=== PATIENT | female | born 1935 | race Caucasian/White ===

== ENCOUNTER 2025-02-16 12:16 | Inpatient (IN) ==
--- NOTE | 2025-02-16 12:30 | Emergency Department Note ---
Impression & Plan Non-ST elevation OR (NSTEMI) ED Provider Note NAME: SAMUEL CHO AGE: 89 SEX: F : 1935 ARRIVES VIA: Walk-In INFORMANT: The patient herself and family at bedside. ED PROVIDER(S): Hollie Sanders PA-C, [Jesus Kerns MD] CHIEF COMPLAINT: Chest pain HISTORY OF PRESENTING ILLNESS: The patient is an 89-year-old female with a PMH aortic stenosis with valvular repair in November 2024, diabetes, constipation who reports to the emergency department after leaving AMA from [facility]. She was evaluated there due to an episode of chest pain. She was seen there yesterday where her initial troponin was 550 and the repeat was 614. She was diagnosed with an NSTEMI and started on heparin drip. She and family members report being 17th in line for transfer to [place] for stress testing so her and her family left [place] to come here for evaluation by automotive power electronics engineer. Patient denies any chest pain currently and is feeling improved. She does report having a cardiology visit with Dr. Prabhakar 3 days ago due to a lower extremity edema. REVIEW OF SYSTEMS: See HPI for pertinent positives and pertinent negatives. ALLERGIES: Codeine, adhesive tape MEDICATIONS: See below PAST MEDICAL HISTORY: See below PHYSICAL EXAM: VITALS: Vitals are noted on the nurses note and reviewed by myself. Vital signs stable. GENERAL: 89-year-old female, in no acute distress, nondiaphoretic, well- developed well-nourished. SKIN: Capillary refill less than 2 seconds. HEENT: Normocephalic. PERRLA. EOMI. Nares patent. Mucous membranes moist. Neck is supple without nuchal rigidity. HEART: Regular rate and rhythm. + Murmur. LUNGS: CTA BL without wheezes, rales or rhonchi. No retractions or accessory muscle use. ABDOMEN: Positive BS x 4. Soft, nontender, without masses or organomegaly. No guarding or rebound tenderness. MUSCULOSKELETAL: No gross musculoskeletal defects. NEURO: Patient was alert and oriented to person place and time. No focal neurological deficits. DIFFERENTIAL DIAGNOSIS: NSTEMI, STEMI, pulmonary embolism, pneumothorax, pericarditis, myocarditis, endocarditis, anxiety, musculoskeletal pain, GERD, costochondritis, pneumonia, among others. ED COURSE AND MEDICAL DECISION MAKING: MEDICATIONS GIVEN: No medications were given. MONITOR: Continuous grocery store manager: Order was placed for continuous grocery store manager. Patient was placed on the grocery store manager and continuous pulse ox. Patient was noted to be in normal sinus rhythm at an initial rate of 71 bpm per my interpretation. EKG: EKG was interpreted by myself as normal sinus rhythm. Left axis deviation. Left bundle branch block. This was noted on previous EKG from 02/13/2025. FL interval 174 ms. QTc 441 ms. When compared to previous EKG from 02/13/2025 no significant change. INTERPRETATION OF LABS: I interpreted the labs with full lab results as below in the lab section of this note. Pertinent lab results discussed in the MDM section below. INTERPRETATION OF IMAGING: I informally interpreted the patient's chest x-ray which does not show evidence of obvious pneumothorax or consolidation and reviewed formal report below. ESCALATION OF CARE CONSIDERED: Escalation of care considered as the patient has been diagnosed with an NSTEMI and was on a heparin drip leaving AMA from prior hospital. Patient's chest pain is relieved here and repeat troponin is downtrending however will admit to medicine for further evaluation and management. CRITICAL CARE: I have personally spent greater than 30 minutes of critical care time in the direct management of this patient. This includes bedside care, interpretation of diagnostic studies, and testing, discussion with consultants, patient, and family members, and other required patient management activities. This 30 minutes is in excess of all separately billable procedures. CONSULTATIONS: On-call [employer] Hospitalist - Presented the patient to the provider and diagnosis of NSTEMI with downtrending troponin. They agreed to evaluate the patient and admit to medicine. They will consult with her automotive power electronics engineer. MDM SUMMARY: I evaluated the 89-year-old female who presents to the emergency department after being diagnosed with an NSTEMI at another facility. She was started on a heparin drip and was awaiting transport however left AMA with family to be evaluated here. See HPI and PE above. Patient's vitals are stable. An EKG was obtained initial rate 71 bpm normal sinus rhythm. Left bundle branch block noted on previous EKG from 02/13/2025. She was evaluated by her automotive power electronics engineer at the time who believes this may be from recent aortic valve replacement surgery. This was being monitored. Patient had developed chest pain 2 days ago when she was initially evaluated. Initial troponin 550 and then elevated to 614. Today it was downtrending at 295.9. Other labs reassuring. Chest x-ray shows no acute findings. On exam the patient is feeling better and has no complaints at this time. I did discuss this case with the on-call hospitalist as this patient would benefit from further evaluation, stress test, and echo. They agreed to evaluating the patient. The patient was admitted in stable condition. DIAGNOSIS: NSTEMI The chart was completed utilizing [employer] Speech voice recognition software. Grammatical errors, random word insertions, pronoun errors, and incomplete sentences are an occasional consequence of this system due to software limitations, ambient noise, and hardware issues. Any formal questions or concerns about the content, text, or information contained within the body of this dictation should be directly addressed to the provider for clarification. TREATMENT PLAN/DISCHARGE INSTRUCTIONS: The patient was admitted to medicine. See that note for further workup and management. Past Med/Surg History Problem List (Updated 02/16/25 @ 16:17 by Hollie Sanders PA-C) Non-ST elevation OR (NSTEMI) (Acute) NSTEMI (non-ST elevated myocardial infarction) Left bundle branch block Pancreas cyst Change in bowel habit Constipation Diabetes Frequent UTI (Chronic) Aortic stenosis Left ventricular hypertrophy Valvular heart disease Carpal tunnel syndrome, left Carpal tunnel syndrome on both sides Medical History Hx of gout Arthritis Frequent UTI not current Diabetes mellitus, type 2 Hx of breast cancer Anxiety Aortic valve disease stenosis>d/t have surgery November 16 2024 @ [place]>followed by Dr. Prabhakar Hypertension Surgical History History of postoperative nausea and vomiting History of carpal tunnel release right/left H/O arthroscopy of knee right/left History of colonoscopy History of appendectomy H/O: hysterectomy History of lumpectomy of left breast left arm restriction>+ radiation History of tooth extraction History of cataract surgery right/left Hx of LASIK Cornea replaced by transplant left History of cardiac cath 03/2024>no stents Family History Sister Ovarian cancer Diabetes Osteoporosis Breast cancer Hypertension Mother Heart disease Hypertension Father Heart disease Hypertension Brother Hypertension Other No family history of adverse response to anesthesia Social History Smoking Status: Never smoker Second Hand Exposure: Yes (in the past); Do You Dip or Chew Tobacco: No; Hx Alcohol Use: No Hx Substance Use: No Preferred Language: Yi Communication Ability: Effective Corporate Sales Trainer Required: No Beliefs That Will Affect Care: Latter-Day Latter-Day Beliefs: Bahai Current Living Situation: Family Current Living Situation Comment: house with son Feels Safe at Home: Yes Safety Concerns: Feels Safe At This Time Assistive Devices: None Allergies Allergies Allergy/AdvReac Type Severity Reaction Status Date / Time adhesive tape Allergy Mild Rash Unverified 02/16/25 14:28 codeine AdvReac Mild hyperactive Verified 02/13/25 13:41 Home Meds Home Medications Medication Instructions Recorded Confirmed Saccharomyces boulardii 250 mg 250 mg PO DAILY 11/03/23 02/16/25 capsule (Daily Probiotic (S. boulardii)) allopurinol 300 mg tablet 300 mg PO QAM 11/03/23 02/16/25 amlodipine 5 mg tablet 5 mg PO QAM 11/03/23 02/16/25 aspirin 81 mg tablet,delayed 81 mg PO QAM 11/03/23 02/16/25 release (Adult Low Dose Aspirin) furosemide 20 mg tablet 20 mg PO Q2D 11/03/23 02/16/25 metformin 500 mg tablet 500 mg PO BID 11/03/23 02/16/25 fluorometholone 0.1 % eye 1 drp OPL UD 09/30/24 02/16/25 drops,suspension ondansetron 4 mg disintegrating 4 mg PO DAILY PRN n/v 10/07/24 02/16/25 tablet cholecalciferol (vitamin D3) 125 125 mcg PO DAILY 02/16/25 02/16/25 mcg (5,000 unit) capsule glipizide 2.5 mg tablet, extended 2.5 mg PO DAILY 02/16/25 02/16/25 release 24 hr hydrochlorothiazide 25 mg tablet 25 mg PO DAILY 02/16/25 02/16/25 irbesartan 300 mg tablet 300 mg PO DAILY 02/16/25 02/16/25 psyllium 0 mg PO DAILY 02/16/25 02/16/25 Results & Data (ED) Vital Signs Vital Signs - 24 hr 02/16/25 12:17 02/16/25 12:18 02/16/25 12:40 Temperature 36.8 C Temperature Source Temporal Artery Scan Pulse Rate 74 Pulse Rate [Apical] 68 Respiratory Rate 20 18 Respiratory Effort / Characteristics Non-Labored Respiratory Depth Normal Blood Pressure 168/76 H Blood Pressure [Right Arm] 168/73 H Blood Pressure Mean 106 Blood Pressure Mean [Right Arm] 104 Pulse Oximetry 97 95 95 Oxygen Delivery Method Room Air Room Air Room Air Sepsis Recent Fever Within 48 Hours No Sepsis New/Unexplained Change in Mental Status No Sepsis Action Taken by Nursing No Action Required 02/16/25 13:32 02/16/25 14:00 Temperature Temperature Source Pulse Rate 69 Pulse Rate [Apical] 69 Respiratory Rate 16 Respiratory Effort / Characteristics Non-Labored Spontaneous Respiratory Depth Normal Blood Pressure Blood Pressure [Right Arm] 140/66 Blood Pressure Mean Blood Pressure Mean [Right Arm] 90 Pulse Oximetry 93 Oxygen Delivery Method Room Air Sepsis Recent Fever Within 48 Hours Sepsis New/Unexplained Change in Mental Status Sepsis Action Taken by Nursing Laboratory Data 02/17/25 07:07 02/17/25 07:07 Lab Results 02/16/25 02/16/25 Range/Units 12:30 14:21 WBC 8.41 (4.8-10.8) K/ul RBC 4.28 (4.20-5.40) M/uL Hgb 13.0 (12.0-16.0) g/dL Hct 37.8 (37.0-47.0) % MCV 88.3 (80.0-100.0) fL MCH 30.4 (25.0-34.0) pg MCHC 34.4 (32.0-36.0) g/dL RDW Std Deviation 44.2 (36.4-46.3) fL RDW Coeff of Lori 13.7 (11.5-14.5) % Plt Count 248 (130-400) K/uL MPV 9.9 (9.4-12.4) fL Immature Gran % (Auto) 0.4 % Neut % (Auto) 55.8 % Lymph % (Auto) 34.0 % [place] % (Auto) 6.2 % Eos % (Auto) 3.1 % Baso % (Auto) 0.5 % Neut # (Auto) 4.70 (1.40-6.50) K/uL Lymph # (Auto) 2.86 (1.20-3.40) K/uL [place] # (Auto) 0.52 (0.11-0.59) K/uL Eos # (Auto) 0.26 (0.00-0.50) K/uL Baso # (Auto) 0.04 (0.00-0.20) K/uL Immature Gran # (Auto) 0.03 (0.01-0.20) K/uL PT 10.2 (9.0-12.0) Seconds INR 1.0 (0.9-1.1) APTT 27 (21-31) Seconds PTT Ratio 1.0 Sodium 136 (136-145) mmol/L Potassium 3.8 (3.5-5.1) mmol/L Chloride 100 (98-107) mmol/L Carbon Dioxide 28 (21-32) mmol/L Anion Gap 8 (3-11) BUN 18 (6-23) mg/dl Creatinine 0.94 (0.6-1.2) mg/dl Est Cr Clr Drug Dosing 36.8 ml/min eGFR 58.00 BUN/Creatinine Ratio 19.1 (10-20) Glucose 166 H (70-99(Fasting)) mg/dl Calcium 9.9 (8.6-10.3) mg/dl Total Bilirubin 0.6 (0.2-1.0) mg/dl AST 15 (13-39) U/L ALT 13 (7-52) U/L Alkaline Phosphatase 80 (34-104) U/L Troponin I High Sens 295.9 H* 320.9 H* (0-14) pg/ml Total Protein 8.7 H (6.0-8.3) gm/dl Albumin 4.0 (3.4-5.0) gm/dl Globulin 4.7 H (2.5-4.0) gm/dl Albumin/Globulin Ratio 0.9 (0.9-2) Lipase 12 (11-82) U/L Administered Medications Allopurinol (Allopurinol 300 Mg Tab) 300 mg PO [facility] Stop: 03/19/25 08:59 Last Admin: 02/17/25 10:03 Dose: 300 mg Documented By: DL Aspirin (Aspirin 81 Mg Ectab) 81 mg PO [facility] Stop: 03/19/25 08:59 Last Admin: 02/17/25 10:02 Dose: 81 mg Documented By: RICARDO Furosemide (Furosemide 20 Mg Tab) 20 mg PO Q2D@1700 SEVERIANO Stop: 03/18/25 16:14 Last Admin: 02/16/25 17:44 Dose: 20 mg Documented By: EUNICE Insulin Aspart (Insulin Aspart Per Unit Charge) 0 units SC ACHS SEVERIANO Stop: 03/18/25 16:29 Last Admin: 02/17/25 17:30 Dose: Not Given Documented By: RICARDO Co-signed By: EUNICE Admin: 02/17/25 11:33 Dose: 5 units Documented By: RICARDO Co-signed By: NYLA Admin: 02/17/25 10:42 Dose: Not Given Documented By: Admin: 02/16/25 21:16 Dose: 2 units Documented By: LISE Co-signed By: KIRAN Admin: 02/16/25 16:46 Dose: Not Given Documented By: EUNICE Losartan Potassium (Losartan Potassium 50 Mg Tab) 100 mg PO DAILY SEVERIANO Stop: 03/19/25 08:59 Last Admin: 02/17/25 10:02 Dose: 100 mg Documented By: RICARDO Fluorometholone 0.1% Opht Susp -- Non- Formulary Patient's Own Med 1 each OPL DAILY SEVERIANO Stop: 03/19/25 08:59 Last Admin: 02/17/25 10:03 Dose: 1 ea Documented By: RICARDO Saccharomyces Boulardii (Saccharomyces Boulardii 250 Mg Cap) 250 mg PO DAILY SEVERIANO Stop: 03/19/25 08:59 Last Admin: 02/17/25 10:02 Dose: 250 mg Documented By: RICARDO Vitamin D (Cholecalciferol 125 Mcg (5,000 Units) Tab) 125 mcg PO DAILY SEVERIANO Stop: 03/19/25 08:59 Last Admin: 02/17/25 10:02 Dose: 125 mcg Documented By: RICARDO Discontinued Medications Amlodipine Besylate (Amlodipine Besylate 5 Mg Tab) 5 mg PO QAM [facility] Stop: 03/19/25 08:59 Last Admin: 02/17/25 10:02 Dose: 5 mg Documented By: RICARDO Amlodipine Besylate (Amlodipine Besylate 5 Mg Tab) 5 mg PO NOW ONE Stop: 02/17/25 13:50 Last Admin: 02/17/25 14:14 Dose: 5 mg Documented By: RICARDO Clopidogrel Bisulfate (Clopidogrel Bisulfate 300 Mg Tab) 300 mg PO NOW ONE Stop: 02/16/25 17:46 Last Admin: 02/16/25 18:10 Dose: 300 mg Documented By: EUNICE Fentanyl Citrate (Fentanyl Citrate Pf 100 Mcg/2 Ml Vial) Confirm Administered Dose 100 mcg .ROUTE .STK-MED ONE Stop: 02/17/25 07:20 Last Increment: 02/17/25 08:28 Dose: 25 mcg Documented By: [id number] Furosemide (Furosemide Inj 20 Mg/2 Ml Vial) Confirm Administered Dose 20 mg IV .STK-MED ONE Stop: 02/16/25 17:05 Last Admin: 02/16/25 17:39 Dose: Not Given Documented By: EUNICE Heparin Sodium (Porcine) (Heparin Sod (Porcine) 1000 Unit/Ml) 3,000 units IV NOW ONE Stop: 02/16/25 17:50 Last Admin: 02/16/25 18:10 Dose: 3,000 units Documented By: EUNICE Co-signed By: DANI Heparin Sodium (Porcine) (Heparin Sod (Porcine) 1000 Unit/Ml) 2,000 units IV NOW ONE Stop: 02/17/25 01:16 Last Admin: 02/17/25 01:08 Dose: 2,000 units Documented By: LISE Co-signed By: UMANG Heparin Sodium (Porcine) (Heparin (Porcine) 1000 Unit/Ml 10 Ml (Switch Foreman Use Only)) Confirm Administered Dose 10,000 units .ROUTE .STK-MED ONE Stop: 02/17/25 07:20 Last Admin: 02/17/25 08:23 Dose: 2,000 units Documented By: DORA Heparin Sodium/Dextrose (Heparin Iv Adult Wt-Based Low-Dose W/ Initial Bolus Protocol) 1 each IV NOW STA; Protocol Stop: 02/16/25 17:35 Last Admin: 02/16/25 18:10 Dose: 1 each Documented By: EUNICE Heparin Sodium/Sodium Chloride (Heparin In Nss Infusion 1000 Unit/500 Ml (2 U/Ml) Bag) Confirm Administered Dose 3,000 units IV .STK-MED ONE Stop: 02/17/25 07:20 Last Admin: 02/17/25 08:22 Dose: 3,000 units Documented By: DORA Heparin Sodium/Dextrose (Heparin 18234 Unit/500 Ml D5w) 25,000 units in 500 mls @ 16 mls/hr IV .Q24H SEVERIANO; Protocol Stop: 03/18/25 17:59 Last Titration: 02/17/25 08:53 Dose: Infused Documented By: RICARDO Co-signed By: DANI Titration: 02/17/25 07:10 Dose: 0 units/hr, 0 mls/hr Documented By: RICARDO Co-signed By: DANI Titration: 02/17/25 07:06 Dose: 800 units/hr, 16 mls/hr Documented By: LISE Co-signed By: RICARDO Titration: 02/17/25 00:53 Dose: 800 units/hr, 16 mls/hr Documented By: LISE Co-signed By: MUANG Titration: 02/16/25 19:04 Dose: 700 units/hr, 14 mls/hr Documented By: EUNICE Co-signed By: LISE Admin: 02/16/25 18:10 Dose: 700 units/hr, 14 mls/hr Documented By: EUNICE Co-signed By: DANI Ioversol (Optiray 350) Confirm Administered Dose 1 ml .ROUTE .STK-MED ONE Stop: 02/17/25 07:21 Last Admin: 02/17/25 08:28 Dose: 35 ml Documented By: DORA Midazolam HCl (Midazolam Hcl 1 Mg/Ml 2ml Vial) Confirm Administered Dose 2 mg .ROUTE .STK-MED ONE Stop: 02/17/25 07:20 Last Increment: 02/17/25 08:28 Dose: 1 mg Documented By: [id number] Miscellaneous (Fluorometholone 0.1 % Drops,Suspension- Order Awaiting Action) 1 each N/A QS [facility] Stop: 03/18/25 16:59 Last Admin: 02/16/25 17:27 Dose: Not Given Documented By: EUNICE Nicardipine HCl (Nicardipine 2,000 Mcg/20 Ml Syr) Confirm Administered Dose 2,000 mcg .ROUTE .STK-MED ONE Stop: 02/17/25 07:21 Last Admin: 02/17/25 08:23 Dose: 2,000 mcg Documented By: DORA Nitroglycerin (Nitroglycerin 2% Ointment 30gm Tube) 1 inch EXT Q6 [facility] Stop: 03/18/25 17:59 Last Admin: 12/05/25 06:11 Dose: 1 inch Documented By: Admin: 02/17/25 00:12 Dose: 1 inch Documented By: Admin: 02/16/25 17:06 Dose: 1 inch Documented By: EUNICE Nitroglycerin/Dextrose (Nitroglycerin/D5w 100mcg/Ml 20ml Syr) Confirm Administered Dose 2,000 mcg .ROUTE .STK-MED ONE Stop: 02/17/25 07:21 Last Admin: 02/17/25 08:23 Dose: 2,000 mcg Documented By: DORA Imaging Data Radiologist's Impression: Chest X-Ray 02/16/25 12:30 XR chest 1V portable CLINICAL HISTORY: chest pain COMPARISON STUDY: No previous studies for comparison. FINDINGS: There are low lung volumes. The heart is normal in size. There is no failure. There is no focal pulmonary consolidation. There are no pleural effusions. Densities projected over the left heart border, likely represent calcification within the mitral valve annulus. IMPRESSION: No active disease in the chest. ACT 112: Negative or not required by law. Electronically signed by: Acosta Floyd M.D. 02/16/2025 12:52 PM Discharge Plan Visit Data Chief Complaint: Chest Pain Stated Complaint: CHEST PAIN ED Provider: Jesus Kerns ED Midlevel Provider: Hollie Sanders Discharge Problem: Non-ST elevation OR (NSTEMI) Patient Disposition: Admitted As Inpatient Condition: Good Discharge Instructions Interventions: ED Discharge Assessment Last Done: 02/16/25 16:00
--- NOTE | 2025-02-16 12:53 | XRay Report ---
XR chest 1V portable CLINICAL HISTORY: chest pain COMPARISON STUDY: No previous studies for comparison. FINDINGS: There are low lung volumes. The heart is normal in size. There is no failure. There is no f ocal pulmonary consolidation. There are no pleural effusions. Densities projected over the left heart border, likely represent calcification within the mitral valve annulus. IMPRESSION: No active disease in the chest. ACT 112: Negative or not required by law. Electronically signed by: Acosta Floyd M.D. 02/16/2025 12:52 PM
[2025-02-16 13:04] LABS: Hematocrit (blood only) 37.8 % (37.0-47.0); Hemoglobin 13.0 g/dL (12.0-16.0); Immature Granulocytes # (auto) 0.03 K/uL (0.01-0.20); Immature Granulocytes % (auto) 0.4 %; Mean Corpuscular Hemoglobin 30.4 pg (25.0-34.0); Mean Corpuscular Volume 88.3 fL (80.0-100.0); Platelet Count 248 K/uL (130-400); RDW Standard Deviation 44.2 fL (36.4-46.3); Red Blood Count 4.28 M/uL (4.20-5.40); White Blood Count 8.41 K/ul (4.8-10.8)
[2025-02-16 13:23] LABS: Alanine Aminotransferase 13.0 U/L (7-52); Albumin Globulin Ratio 0.9 (0.9-2); Albumin Level 4.0 gm/dl (3.4-5.0); Alkaline Phosphatase 80.0 U/L (34-104); Anion Gap 8.0 (3-11); Bilirubin,Total 0.6 mg/dl (0.2-1.0); Blood Urea Nitrogen 18.0 mg/dl (6-23); Calcium 9.9 mg/dl (8.6-10.3); Carbon Dioxide 28.0 mmol/L (21-32); Chloride 100.0 mmol/L (98-107); Creatinine Clr Calc Pharmacy 36.8 ml/min; Globulin 4.7 gm/dl (2.5-4.0); Glucose 166.0 mg/dl (70-99(Fasting)); Lipase 12.0 U/L (11-82); Potassium 3.8 mmol/L (3.5-5.1); Sodium 136.0 mmol/L (136-145); Total Protein 8.7 gm/dl (6.0-8.3)
--- NOTE | 2025-02-16 13:29 | Electrocardiogram Report ---
Test Reason : Blood Pressure : */* mmHG Vent. Rate : 71 BPM Atrial Rate : 71 BPM P-R Int : 174 ms QRS Dur : 122 ms QT Int : 406 ms P-R-T Axes : 32 -47 110 degrees QTcB Int : 441 ms Normal sinus rhythm Left axis deviation Left bundle branch block Abnormal ECG When compared with ECG of 13-Feb-2025 14:23, (unconfirmed) No significant change was found Confirmed by Jay Jay Ramos ([id number]) on 02/16/2025 1:29:00 PM Referred By: Confirmed By: Jay Jay Ramos
[2025-02-16 13:48] LABS: INR 1.0 (0.9-1.1); Partial Thromboplastin Time 27 Seconds (21-31); Prothrombin Time 10.2 Seconds (9.0-12.0)
[2025-02-16] MEDS ORDERED: ONDANSETRON INJ 2 MG/ML 2 ML VIAL IV PRN (15:51)
[2025-02-16] MEDS ORDERED: MoRPHine SULFATE 2 MG/ML CARP IV PRN (15:51)
[2025-02-16] MEDS ORDERED: GLUCOSE 10 TAB/TUBE PO PRN (15:51)
[2025-02-16] MEDS ORDERED: CARBOHYDRATES FOR HYPOGLYCEMIA PO PRN (15:51)
[2025-02-16] MEDS ORDERED: ONDANSETRON 4 MG OD TAB PO PRN (15:51)
[2025-02-16] MEDS ORDERED: DEXTROSE 50% 50 ML SYRINGE IV PRN (15:51)
[2025-02-16] MEDS ORDERED: ACETAMINOPHEN 325 MG TAB PO PRN (15:51)
[2025-02-16] MEDS ORDERED: GLUCAGON FOR INJ 1 MG VIAL SQ PRN (15:51)
[2025-02-16] MEDS ORDERED: GLUCOSE 40% GEL 15 GM TUBE PO PRN (15:51)
--- NOTE | 2025-02-16 16:05 | History & Physical Report ---
Date of Service February 16, 2025 Assessment & Plan (1) NSTEMI (non-ST elevated myocardial infarction): (2) Diabetes: (3) Hx of gout: Plan 89-year-old female history of nonocclusive coronary disease and recent TAVR in November 2024 who presents with chest pain with associated radiation symptoms and nausea patient has mild elevation of troponin in the face of a pre-existing left bundle branch block that occurred after TAVR placement. #Chest pain continue to trend troponins proved cecelia Arellano keeping n.p.o. after midnight in case patient would require cardiac catheterization. Consultation with Dr. Prabhakar who is her outpatient physician. Continuing aspirin metoprolol irbesartan. Will not fully anticoagulate [place] chest pain recurs or she has more dynamic changes on her EKG. Will not repeat echo as we have a copy of her report from echo from [facility] with a preserved ejection fraction and no regional wall motion abnormalities. #Heart failure preserved ejection fraction. Not in exacerbation however recent increased lower extremity edema. Patient was instructed to increase furosemide from 20 mg every other day to 20 mg daily. She also takes hydrochlorothiazide. Hydrochlorothiazide will be held and Lasix dose is unclear at this time as the patient is not in heart failure we are unsure whether she is having cardiac catheterization on 02/17/2025 #Diabetes. Patiently placed on insulin sliding scale and a diabetic diet her glipizide and metformin are held in case she needs IV contrast dye. #Gout history of no exacerbation at this time patient is continued on allopurinol. #Abnormal globin and protein, no abnormalities of the patient's differential but concern could be for a MGUS or similar situation with abnormal protein. May consider SPEP UPEP Admission and Anticipated Discharge Date Admission Date: February 16, 2025 History of Present Illness Primary Care Provider: Jarod Floyd 89-year-old female with a history of TAVR in November 2024. Patient had a cardiac catheterization in August 2024 and developed nonocclusive coronary disease and preserved ejection fraction. Patient has been doing well since her TAVR in November however on 2 days prior to admission she developed substernal chest pain rating to her back left shoulder and jaw. This pain was fairly persistent. The patient took additional doses of aspirin x 2 at home pain improved strangely and then worsened and she [facility] she was told she had a NSTEMI with elevation of her troponin and echocardiogram did not show regional wall motion abnormalities and a preserved ejection fraction. 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 Prabhakar. Currently the patient is pain-free. She does have some minor lower extremity swelling and tenderness which has been persistent throughout the week does not appear to be cellulitic. Her lungs are clear. Allergies Allergy/AdvReac Type Severity Reaction Status Date / Time adhesive tape Allergy Mild Rash Unverified 02/16/25 14:28 codeine AdvReac Mild hyperactive Verified 02/13/25 13:41 Home Medications Medication Instructions Recorded Confirmed Type Saccharomyces boulardii 250 mg 250 mg PO DAILY 11/03/23 02/16/25 History capsule (Daily Probiotic (S. boulardii)) allopurinol 300 mg tablet 300 mg PO QAM 11/03/23 02/16/25 History amlodipine 5 mg tablet 5 mg PO QAM 11/03/23 02/16/25 History aspirin 81 mg tablet,delayed 81 mg PO QAM 11/03/23 02/16/25 History release (Adult Low Dose Aspirin) furosemide 20 mg tablet 20 mg PO Q2D 11/03/23 02/16/25 History metformin 500 mg tablet 500 mg PO BID 11/03/23 02/16/25 History fluorometholone 0.1 % eye 1 drp OPL UD 09/30/24 02/16/25 History drops,suspension ondansetron 4 mg disintegrating 4 mg PO DAILY PRN n/v 10/07/24 02/16/25 History tablet cholecalciferol (vitamin D3) 125 125 mcg PO DAILY 02/16/25 02/16/25 History mcg (5,000 unit) capsule glipizide 2.5 mg tablet, extended 2.5 mg PO DAILY 02/16/25 02/16/25 History release 24 hr hydrochlorothiazide 25 mg tablet 25 mg PO DAILY 02/16/25 02/16/25 History irbesartan 300 mg tablet 300 mg PO DAILY 02/16/25 02/16/25 History psyllium 0 mg PO DAILY 02/16/25 02/16/25 History Past Med/Surg History Problem List (Updated 02/16/25 @ 16:01 by Lorenzo Triplett MD) NSTEMI (non-ST elevated myocardial infarction) Left bundle branch block Pancreas cyst Change in bowel habit Constipation Diabetes Frequent UTI (Chronic) Aortic stenosis Left ventricular hypertrophy Valvular heart disease Carpal tunnel syndrome, left Carpal tunnel syndrome on both sides Medical History Hx of gout Arthritis Frequent UTI Diabetes mellitus, type 2 Hx of breast cancer Anxiety Aortic valve disease Hypertension Surgical History History of postoperative nausea and vomiting History of carpal tunnel release H/O arthroscopy of knee History of colonoscopy History of appendectomy H/O: hysterectomy History of lumpectomy of left breast History of tooth extraction History of cataract surgery Hx of LASIK Cornea replaced by transplant History of cardiac cath Family History (Updated 09/30/24 @ 11:32 by Lidia Sheppard RN) Sister Ovarian cancer Diabetes Osteoporosis Breast cancer Hypertension Mother Heart disease Hypertension Father Heart disease Hypertension Brother Hypertension Other No family history of adverse response to anesthesia Social History Smoking Status: Never smoker Second Hand Exposure: Yes (in the past); Do You Dip or Chew Tobacco: No; Hx Alcohol Use: No Hx Substance Use: No Preferred Language: Belizean Communication Ability: Effective Color Artist Required: No Beliefs That Will Affect Care: Shinto Shinto Beliefs: Taoism Current Living Situation: Family Current Living Situation Comment: house with son Feels Safe at Home: Yes Assistive Devices: Contacts and Glasses Review of Systems Review of Systems: Mild distress and fatigue no headache, no visual changes no speech or swallowing issues no current chest pain, pressure or palpitations no shortness of breath, cough or wheezes no abdominal pain, nausea or vomiting, diarrhea or constipation no dysuria, hematuria or frequency no focal joint pain does have bilateral lower extremity swelling with minor discomfort no back pain, CVA tenderness or radicular pain no bruising, bleeding or rashes no focal signs of weakness or numbness or altered sensation no complaints of anxiety or depression.. Physical Exam Physical Exam: The patient appeared well nourished and normally developed. Vital signs as documented. Head exam is normocephalic atraumatic Neck is without JVD, thyromegaly, or carotid bruits. Lungs are clear to auscultation, no focal loss of breath sounds Cardiac exam is regular with a systolic murmur and a fixed split S2 Neurologic exam is alert and oriented, no focal loss of strength or sensation Skin is without bruises or rashes Psychologically is without concerns for anxiety or depression.. Results & Data Results & Data Vital Signs (Past 12 Hours) Vital Signs Temp Pulse Pulse Resp BP BP Pulse Ox 02/16/25 14:00 69 16 140/66 93 02/16/25 13:32 69 02/16/25 12:40 68 18 168/73 H 95 02/16/25 12:18 98.2 F 74 20 168/76 H 95 02/16/25 12:17 97 O2 Del Method 02/16/25 14:00 Room Air 02/16/25 13:32 02/16/25 12:40 Room Air 02/16/25 12:18 Room Air 02/16/25 12:17 Room Air Laboratory Results Reviewed CBC Reviewed chemistry Elevated troponin Reviewed EKG stable left bundle branch block pre-existing Reviewed chest x-ray no active disease Code Status & VTE Plan VTE Prophylaxis Plan VTE Prophylaxis will be ordered: Yes PG Care Time/CCT Total # of Minutes Spent Total Time Spent with Patient: Total time spent is greater than 50% in coordination of care (as documented) at patient's floor/unit and/or counseling patient: Coding Level of Care Code 08793 INT INP/OBS CARE MIN Diagnoses NSTEMI (non-ST elevated myocardial infarction) I21.4 Diabetes E11.9 Hx of gout Z87.39
[2025-02-16] MEDS: INSULIN ASPART PER UNIT CHARGE SC SCH (16:46)
[2025-02-16] MEDS: FUROSEMIDE INJ 20 MG/2 ML VIAL IV ONE (17:06)
[2025-02-16] MEDS: NITROGLYCERIN 2% OINTMENT 30GM TUBE EXT SCH (17:06)
[2025-02-16] MEDS: FUROSEMIDE 20 MG TAB PO SCH (17:23)
--- NOTE | 2025-02-16 17:30 | Cardiology Consultation ---
Date of Consultation February 16, 2025 Assessment & Plan (1) Non-ST elevation UT (NSTEMI): (2) Left bundle branch block: (3) Aortic stenosis: Plan 1. NSTEMI: Her symptoms are certainly concerning for a coronary syndrome. The only real curiosity is a relatively low elevation in her biomarkers given the extended duration of her symptoms. However, she is certainly in a demographic and patient is at risk for coronary events. Still some residual symptoms at times. I think we will resume her heparin infusion. Will continue with aspirin therapy. I will load her with Plavix as well. I discussed options for evaluation including perfusion imaging versus coronary angiography. My recommendation was for angiography and she is agreeable. She is aware of the risks and benefits and familiar with the procedure from March of this year. 2. Left bundle branch block: Residual from her TAVR. No higher degree AV block noted. 3. Aortic stenosis: Status post successful TAVR. No current symptoms of severe valvular heart disease. History of Present Illness Reason for Consultation: NSTEMI Requesting Physician: Ioana Attending Physician: Lorenzo Triplett MD History of Present Illness The patient is an 89-year-old woman with a history of severe aortic stenosis who underwent a TAVR in December 2024. This was performed at [facility]. The procedure itself was complicated only by development of a left bundle branch block. The patient had few symptoms leading up to the valve replacement and did not notice any specific improvement in symptoms subsequent to the replacement. Preoperative cardiac catheterization did not reveal any significant coronary artery disease. She is known to have preserved LV systolic function. She was actually seen earlier this week in the outpatient setting and had only 1 complaint which was some mild lower extremity edema. She does be a very active individual and did not report exertional symptoms such as breathing difficulty, dizziness or chest discomfort. 2 nights ago she began to have some symptoms of abdominal discomfort. She started to have some nausea and this later progressed to chest pressure, arm and jaw discomfort. Also some radiation to the back. She took some aspirin with some mild improvement but no resolution. On the advice of her children she was taken to a local hospital where she was discovered to have elevated cardiac biomarkers. She states that she took an aspirin immediately before leaving her house and by the time she reached the emergency room her symptoms had resolved. She states that she has only had brief episodes of discomfort since that time and they have been localized to the epigastric region. Perhaps some mild discomfort currently. No associated dyspnea. No pleuritic symptoms. No dizziness or lightheadedness. She is not been aware of any palpitations. She was advised at [facility] to undergo cardiac perfusion imaging but she was concerned about the absence of a lathe winder on site. Her family brought her to [facility] for an evaluation. Allergies Allergy/AdvReac Type Severity Reaction Status Date / Time adhesive tape Allergy Mild Rash Unverified 02/16/25 14:28 codeine AdvReac Mild hyperactive Verified 02/13/25 13:41 Home Medications Medication Instructions Recorded Confirmed Type Saccharomyces boulardii 250 mg 250 mg PO DAILY 11/03/23 02/16/25 History capsule (Daily Probiotic (S. boulardii)) allopurinol 300 mg tablet 300 mg PO QAM 11/03/23 02/16/25 History amlodipine 5 mg tablet 5 mg PO QAM 11/03/23 02/16/25 History aspirin 81 mg tablet,delayed 81 mg PO QAM 11/03/23 02/16/25 History release (Adult Low Dose Aspirin) furosemide 20 mg tablet 20 mg PO Q2D 11/03/23 02/16/25 History metformin 500 mg tablet 500 mg PO BID 11/03/23 02/16/25 History fluorometholone 0.1 % eye 1 drp OPL UD 09/30/24 02/16/25 History drops,suspension ondansetron 4 mg disintegrating 4 mg PO DAILY PRN n/v 10/07/24 02/16/25 History tablet cholecalciferol (vitamin D3) 125 125 mcg PO DAILY 02/16/25 02/16/25 History mcg (5,000 unit) capsule glipizide 2.5 mg tablet, extended 2.5 mg PO DAILY 02/16/25 02/16/25 History release 24 hr hydrochlorothiazide 25 mg tablet 25 mg PO DAILY 02/16/25 02/16/25 History irbesartan 300 mg tablet 300 mg PO DAILY 02/16/25 02/16/25 History psyllium 0 mg PO DAILY 02/16/25 02/16/25 History Patient History Medical History Hx of gout Arthritis Frequent UTI not current Diabetes mellitus, type 2 Hx of breast cancer Anxiety Aortic valve disease stenosis>d/t have surgery November 16 2024 @ [place]>followed by Dr. Prabhakar Hypertension Surgical History History of postoperative nausea and vomiting History of carpal tunnel release right/left H/O arthroscopy of knee right/left History of colonoscopy History of appendectomy H/O: hysterectomy History of lumpectomy of left breast left arm restriction>+ radiation History of tooth extraction History of cataract surgery right/left Hx of LASIK Cornea replaced by transplant left History of cardiac cath 03/2024>no stents Family History Sister Ovarian cancer Diabetes Osteoporosis Breast cancer Hypertension Mother Heart disease Hypertension Father Heart disease Hypertension Brother Hypertension Other No family history of adverse response to anesthesia Social History Smoking Status: Never smoker Second Hand Exposure: Yes (in the past); Do You Dip or Chew Tobacco: No; Hx Alcohol Use: No Hx Substance Use: No Preferred Language: Faroese Communication Ability: Effective Repairer Helper Required: No Beliefs That Will Affect Care: Moravian Moravian Beliefs: Orthodoxy Current Living Situation: Family Current Living Situation Comment: house with son Feels Safe at Home: Yes Safety Concerns: Feels Safe At This Time Assistive Devices: Contacts and Glasses Review of Systems Review of Systems: Per HPI. Some tenderness on the anterior aspect of the right estrada Physical Exam Physical Exam: She is alert and oriented x3. Mood affect appear normal. She answered all questions appropriately. HEENT: Sclerae are anicteric. Pupils are equal and reactive to light and accommodation. Extraocular movements were intact. Neuro: Cranial nerves intact Lungs: Rales at the bases bilaterally. Normal respiratory effort. No expiratory wheezing. No bronchial breath sounds. Cardiac: The rhythm was regular. S1 and S2 were normal. Crescendo systolic murmur. The PMI was not markedly displaced on palpation. Extremities: Patient has bilateral radial pulses that are equal in intensity. There is no evidence cyanosis or clubbing. There was no evidence of significant peripheral edema bilaterally. Skin: There are no rashes noted on examination today. Results & Data Vital Signs (Past 12 Hours) Vital Signs Temp Pulse Pulse Resp BP BP Pulse Ox 02/16/25 15:58 36.5 C 83 83 H 156/69 H 98 02/16/25 14:00 69 16 140/66 93 02/16/25 13:32 69 02/16/25 12:40 68 18 168/73 H 95 02/16/25 12:18 36.8 C 74 20 168/76 H 95 02/16/25 12:17 97 O2 Del Method 02/16/25 15:58 Room Air 02/16/25 14:00 Room Air 02/16/25 13:32 02/16/25 12:40 Room Air 02/16/25 12:18 Room Air 02/16/25 12:17 Room Air Laboratory Results Abnormal Lab Results 02/16/25 02/16/25 02/16/25 12:30 14:21 16:09 WBC 8.41 RBC 4.28 Hgb 13.0 Hct 37.8 MCV 88.3 MCH 30.4 MCHC 34.4 RDW Std Deviation 44.2 RDW Coeff of Lori 13.7 Plt Count 248 MPV 9.9 Immature Gran % (Auto) 0.4 Neut % (Auto) 55.8 Lymph % (Auto) 34.0 Beckham % (Auto) 6.2 Eos % (Auto) 3.1 Baso % (Auto) 0.5 Neut # (Auto) 4.70 Lymph # (Auto) 2.86 Beckham # (Auto) 0.52 Eos # (Auto) 0.26 Baso # (Auto) 0.04 Immature Gran # (Auto) 0.03 PT 10.2 INR 1.0 APTT 27 PTT Ratio 1.0 Sodium 136 Potassium 3.8 Chloride 100 Carbon Dioxide 28 Anion Gap 8 BUN 18 Creatinine 0.94 Est Cr Clr Drug Dosing 36.8 eGFR 58.00 BUN/Creatinine Ratio 19.1 Glucose 166 H POC Glucose Calcium 9.9 Total Bilirubin 0.6 AST 15 ALT 13 Alkaline Phosphatase 80 Troponin I High Sens 295.9 H* 320.9 H* 285.1 H* Total Protein 8.7 H Albumin 4.0 Globulin 4.7 H Albumin/Globulin Ratio 0.9 Lipase 12 02/16/25 16:42 WBC RBC Hgb Hct MCV MCH MCHC RDW Std Deviation RDW Coeff of Lori Plt Count MPV Immature Gran % (Auto) Neut % (Auto) Lymph % (Auto) Beckham % (Auto) Eos % (Auto) Baso % (Auto) Neut # (Auto) Lymph # (Auto) Beckham # (Auto) Eos # (Auto) Baso # (Auto) Immature Gran # (Auto) PT INR APTT PTT Ratio Sodium Potassium Chloride Carbon Dioxide Anion Gap BUN Creatinine Est Cr Clr Drug Dosing eGFR BUN/Creatinine Ratio Glucose POC Glucose 116 H Calcium Total Bilirubin AST ALT Alkaline Phosphatase Troponin I High Sens Total Protein Albumin Globulin Albumin/Globulin Ratio Lipase PG Care Time/CCT Total # of Minutes Spent Total Time Spent with Patient: Total time spent is greater than 50% in coordination of care (as documented) at patient's floor/unit and/or counseling patient: Coding Level of Care Code 84807 INT INP/OBS CARE 3/75MIN Diagnoses Non-ST elevation UT (NSTEMI) I21.4 Left bundle branch block I44.7 Aortic stenosis I35.0
[2025-02-16] MEDS: Heparin IV Adult Wt-Based Low-Dose w/ INITIAL Bolus Protocol IV STA (18:10)
[2025-02-16] MEDS: HEPARIN SOD (PORCINE) 1000 UNIT/ML IV ONE (18:10)
[2025-02-16] MEDS: CLOPIDOGREL BISULFATE 300 MG TAB PO ONE (18:10)
[2025-02-16] MEDS: HEPARIN 25000 UNIT/500 ML D5W 25,000 UNITS/500 ML BAG IV SCH (18:10)
[2025-02-16] MEDS ORDERED: HEPARIN SOD 5,000 UNIT/0.5 ML VIAL SQ SCH (21:00)
[2025-02-16] MEDS ORDERED: HEPARIN SOD 5,000 UNIT/0.5 ML VIAL SQ ONE (21:00)
[2025-02-17 00:48] LABS: ANTI-Xa, UFH(UnfractionatedHep 0.15 IU/ml (0.3-0.7)
[2025-02-17] MEDS: HEPARIN SOD (PORCINE) 1000 UNIT/ML IV ONE (01:08)
[2025-02-17 07:31] LABS: Hematocrit (blood only) 33.3 % (37.0-47.0); Hemoglobin 11.3 g/dL (12.0-16.0); Mean Corpuscular Hemoglobin 30.2 pg (25.0-34.0); Mean Corpuscular Volume 89.0 fL (80.0-100.0); Platelet Count 195 K/uL (130-400); RDW Standard Deviation 44.0 fL (36.4-46.3); Red Blood Count 3.74 M/uL (4.20-5.40); White Blood Count 5.72 K/ul (4.8-10.8)
--- NOTE | 2025-02-17 07:44 | Pre Anesthesia Assessment ---
Date of Service February 17, 2025 Pre Sedation Assessment Vital Signs Temp Pulse Pulse Resp BP BP Pulse Ox 02/17/25 07:32 74 14 137/72 02/17/25 02:51 36.6 C 64 19 108/58 L 94 02/16/25 22:42 36.6 C 64 18 108/53 L 94 02/16/25 20:00 36.7 C 65 18 132/56 L 94 02/16/25 15:58 36.5 C 83 83 H 156/69 H 98 02/16/25 14:00 69 16 140/66 93 02/16/25 13:32 69 02/16/25 12:40 68 18 168/73 H 95 02/16/25 12:18 36.8 C 74 20 168/76 H 95 02/16/25 12:17 97 O2 Del Method 02/17/25 07:32 Room Air 02/17/25 02:51 Room Air 02/16/25 22:42 Room Air 02/16/25 20:00 Room Air 02/16/25 15:58 Room Air 02/16/25 14:00 Room Air 02/16/25 13:32 02/16/25 12:40 Room Air 02/16/25 12:18 Room Air 02/16/25 12:17 Room Air Cardiovascular + regular rate and + regular rhythm Respiratory + respiratory effort normal Pre-Sedation Airway Assessment Smoking Status: Never smoker Hx Sleep Apnea: No Hx Difficult Intubation: No Short, Thick Neck: Yes Thyromental Distance: > or= 3.5 Finger Breadths Oral Cavity: + Dental Abnormalities Mallampati Class: III ASA: ASA3 NPO Status Date of Last Intake of Fluids: 02/16/25 Time of Last Intake of Fluids: 17:00 Date of Last Intake of Solid Food: 02/16/25 Time of Last Intake of Solid Foods: 17:00 Procedure Planning Contraindications for Sedation: none Current Medications Reviewed: Yes Notes The planned sedation has been discussed with the patient. Informed Consent was obtained. I have identified the patient, determined the appropriateness of sedation and have assessed the patient immediately prior to the procedure. All medicine(s) and interventions are by my order.
[2025-02-17 07:50] LABS: Anion Gap 9.0 (3-11); Blood Urea Nitrogen 21.0 mg/dl (6-23); Carbon Dioxide 27.0 mmol/L (21-32); Chloride 103.0 mmol/L (98-107); Creatinine Clr Calc Pharmacy 35.8 ml/min; Glucose 169.0 mg/dl (70-99(Fasting)); Potassium 3.8 mmol/L (3.5-5.1); Sodium 139.0 mmol/L (136-145)
[2025-02-17 07:58] LABS: ANTI-Xa, UFH(UnfractionatedHep 0.22 IU/ml (0.3-0.7)
[2025-02-17 08:08] LABS: Hemoglobin A1C 7.9 % (4.5-5.6)
[2025-02-17] MEDS: niCARdipine 2,000 MCG/20 ML SYR ONE (08:23)
[2025-02-17] MEDS: HEPARIN (PORCINE) 1000 UNIT/ML 10 ML (CATH LAB USE ONLY) ONE (08:23)
[2025-02-17] MEDS: NITROGLYCERIN/D5W 100MCG/ML 20ML SYR ONE (08:23)
[2025-02-17 08:27] LABS: Calcium 8.8 mg/dl (8.6-10.3)
[2025-02-17] MEDS: OPTIRAY 350 ONE (08:28)
[2025-02-17] MEDS: MIDAZOLAM HCL 1 MG/ML 2ML VIAL ONE (08:28)
--- NOTE | 2025-02-17 08:28 | Cardiac Catheterization ---
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 Cardiac Status Clinical evaluation leading to the procedure CAD Presenation: Non STEMI Diagnostic Physicians Name: Alfredo Prabhakar MD Closure Device Recommendations: Medical Therapy and/or Counseling Cardiac Cath Procedure Full Procedure Date February 17, 2025 Pre-Procedure Diagnosis Pre-Procedure Diagnosis: Non STEMI AUC Score AUC Score: 7 Post-Procedure Diagnosis Post-Procedure Diagnosis: Mild CAD Procedure(s) Performed Procedure(s) Performed: Coronary Angiography and Left Heart Cath Administrative Medical Director Alfredo Prabhakar MD Estimated Blood Loss Estimated Blood Loss: 7cc Medication(s) Medication(s): Fentanyl, Heparin, Lidocaine 1%, Nicardipine, Nitroglycerin and Versed Summary of Findings Procedure performed: Left heart catheterization, selective coronary angiography Staff porcelain enameler: Alfredo Prabhakar MD Indication: The patient is a 89-year-old woman with a history of severe aortic stenosis who presented to an outside facility with symptoms of chest discomfort. She was noted to have elevated cardiac biomarkers and elected to come to our facility for additional investigation. Procedure in detail: The patient was informed of the risks benefits and alternatives to the intended procedure, he understood such and wished to proceed. She was taken to the cardiac catheterization suite in a fasting state. Conscious sedation was administered per protocol and the patient was monitored electrocardiographically throughout today's procedure. The right wrist area was prepped and draped in usual sterile fashion. This area was anesthetized using subcutaneous administration of a lidocaine solution. The right radial artery was then accessed using Seldinger technique, and a arterial sheath was placed at this site over a guidewire. The sheath was used to facilitate passage of the cardiac catheter for coronary angiography and left heart catheterization. Coronary angiogram was then obtained in multiple orthogonal views prior to removal of the catheter. At the conclusion of the procedure the sheath was removed and hemostasis was achieved at the access site using manual pressure. The patient tolerated procedure well, there were no immediate complications. Equipment used: 5 [place] 4 Findings: Coronary angiography Left Main: Left main was quite short but did bifurcate normally into the left anterior descending left circumflex artery. No evident stenosis in this vessel Left anterior descending: This vessel reaches the apex. There is a very high first diagonal branch without disease. There was a small to medium size second diagonal with a 90% ostial stenosis. There is a small third diagonal branch without disease. There was an area in the mid LAD with some luminal irregularities but no flow-limiting lesions. Left circumflex: Left circumflex is a nondominant vessel. This produced a large first OM system and a smaller 2nd and 3rd OM system. Some luminal regularities but no discrete stenoses. Right coronary artery: Right coronary is a dominant vessel producing the PDA. It produced a medium sized posterolateral branch. There was some mild disease in the proximal portion estimated at 30 to 40%. No obstructive lesions. Impression No evidence of acute coronary syndrome Right dominant coronary system Normal left ventricular filling pressures 90% ostial stenosis involving a second diagonal branch Nonobstructive disease in the mid LAD and proximal right coronary artery Hemodynamics Rest Ao:: 126/57 mmHg Final Ao: 134/61 mmHg LV: 131/6 mmHg Left ventricular end-diastolic pressure 11 mmHg Recommendations Recommendations: Medical Therapy and/or Counseling Radiation Exposure (mGy) 430 Contrast (mls) 35 Procedural Complication(s) None Disposition PCU I attest to the content of the Intraoperative Record and any orders documented therein. Any exceptions are noted below. [facility] Card Cath Procedure Codes Cardiac Catheterization Procedure 1: Cardiovascular Cath Procedures: 64035 Coronaries and LHC (+/-LV) Moderate Sedation Procedure 1: Sedation/Anesthesia: 33434 Mod Sedation by the same physician;Init15 Min Child Age 5 & Up Procedure 2: Sedation/Anesthesia: 60385 Mod Sedation by the same physician; Ea [id number] Minutes PG Care Time/CCT Total # of Minutes Spent Total Time Spent with Patient: Total time spent is greater than 50% in coordination of care (as documented) at patient's floor/unit and/or counseling patient:
--- NOTE | 2025-02-17 08:28 | Post Anesthesia Assessment ---
Date of Service February 17, 2025 Post Sedation Assessment Vital Signs Temp Pulse Pulse Resp BP BP Pulse Ox 02/17/25 07:32 74 14 137/72 02/17/25 02:51 36.6 C 64 19 108/58 L 94 02/16/25 22:42 36.6 C 64 18 108/53 L 94 02/16/25 20:00 36.7 C 65 18 132/56 L 94 02/16/25 15:58 36.5 C 83 83 H 156/69 H 98 02/16/25 14:00 69 16 140/66 93 02/16/25 13:32 69 02/16/25 12:40 68 18 168/73 H 95 02/16/25 12:18 36.8 C 74 20 168/76 H 95 02/16/25 12:17 97 O2 Del Method 02/17/25 07:32 Room Air 02/17/25 02:51 Room Air 02/16/25 22:42 Room Air 02/16/25 20:00 Room Air 02/16/25 15:58 Room Air 02/16/25 14:00 Room Air 02/16/25 13:32 02/16/25 12:40 Room Air 02/16/25 12:18 Room Air 02/16/25 12:17 Room Air Recovery Score Activity: Moves 4 extremities Respiration: Deep Breath/Cough Circulation: +/-20% PreAnes Value Consciousness: Arouseable (by name) Oxygen Saturation: O2 needed for >90% Discharge Sedation Level of Care: Fast Track Phase II Post Sedation Plan On clinical assessment, the patient appears to have tolerated the sedation without complications. Patient is recovering as anticipated. Patient will continue to be monitored by nursing and may be discharged when sedation discharge criteria are met per below protocol. Upon Completions of procedure up to 15 minutes continue every 5 minute vital signs and the P.A.R. score; then discharge to a Phase I or Fast Track to Phase II per the following guidelines: * Discharge Patient to appropriate Phase II area if PAR is 8 or greater or return to pre- procedure baseline. The post - procedure orders will be as directed. * If PAR score is less than 8 or not return to pre-procedure baseline then patient will follow Phase I monitoring till PAR is reached for Phase II. The Phase I may be done in procedure room or may call to secure a Phase I area. * If naloxone or flumazenil are used for reversal, hold in Phase I for continued monitoring from when last reversal dose was given for a minimum of 60 minutes or longer pending the nurse and/or physician discretion of patient condition before discharge to Phase II. Please call the Sedation Physician to re-evaluate and complete post-note for discharge to Phase II area. Do NOT discharge from procedure sedation or Phase 1 until post- sedation evaluation note is complete by procedure /sedation MD Sedation Discharge Instructions to be given to the patient at discharge to home.
[2025-02-17] MEDS: LOSARTAN POTASSIUM 50 MG TAB PO SCH (10:02)
[2025-02-17] MEDS: ASPIRIN 81 MG ECTAB PO SCH (10:02)
[2025-02-17] MEDS: CHOLECALCIFEROL 125 MCG (5,000 UNITS) TAB PO SCH (10:02)
[2025-02-17] MEDS: SACCHAROMYCES BOULARDII 250 MG CAP PO SCH (10:02)
--- NOTE | 2025-02-17 10:41 | Cardiology Progress Note ---
Date of Service February 17, 2025 Assessment & Plan (1) Non-ST elevation PR (NSTEMI): (2) Left bundle branch block: (3) Aortic stenosis: Plan 1. NSTEMI: Angiography did not reveal any discrete acute lesions. Symptoms perhaps related to stenosis of a small diagonal branch. Also possibly a transient process. This point I do not think she requires continued heparinization. However, I do think we will keep her on dual antiplatelet therapy. 2. Left bundle branch block: Residual from her TAVR. No higher degree AV block noted. 3. Aortic stenosis: Status post successful TAVR. No current symptoms of severe valvular heart disease. 4. Chest pain: Symptoms certainly concerning for an acute coronary syndrome. Mildly elevated biomarkers although relatively low given her description and duration of the symptoms. I suppose it is possible that higher blood pressures in the setting of a small diagonal stenosis could have produced similar findings. No current symptoms. 5. Hypertension: She seems to have consistently elevated blood pressures. She would likely benefit from an increase in her antihypertensives. Easiest change would be increasing her amlodipine dose to 10 mg daily. Admission and Anticipated Discharge Date Admission Date: February 16, 2025 Subjective This morning patient was feeling well. She has not had any recurrent symptoms of abdominal or chest discomfort. Review of Systems Review of Systems: Per HPI. Some tenderness on the anterior aspect of the right estrada Physical Exam Physical Exam: She is alert and oriented x3. Mood affect appear normal. She answered all questions appropriately. HEENT: Sclerae are anicteric. Pupils are equal and reactive to light and accommodation. Extraocular movements were intact. Neuro: Cranial nerves intact Lungs: Normal respiratory effort. Cardiac: The rhythm was regular. S1 and S2 were normal. Crescendo systolic murmur. The PMI was not markedly displaced on palpation. Extremities: Patient has bilateral radial pulses that are equal in intensity. There is no evidence cyanosis or clubbing. There was no evidence of significant peripheral edema bilaterally. Skin: There are no rashes noted on examination today. Results & Data Vital Signs (Past 12 Hours) Vital Signs Temp Pulse Resp BP BP Pulse Ox O2 Del Method 02/17/25 09:15 65 14 179/76 H 94 Room Air 02/17/25 09:00 65 14 179/76 H 94 Room Air 02/17/25 08:45 68 14 169/68 H 94 Room Air 02/17/25 07:32 74 14 137/72 Room Air 02/17/25 02:51 36.6 C 64 19 108/58 L 94 Room Air 02/16/25 22:42 36.6 C 64 18 108/53 L 94 Room Air Laboratory Results Abnormal Lab Results 02/16/25 02/16/25 02/16/25 12:30 14:21 16:09 WBC 8.41 RBC 4.28 Hgb 13.0 Hct 37.8 MCV 88.3 MCH 30.4 MCHC 34.4 RDW Std Deviation 44.2 RDW Coeff of Lori 13.7 Plt Count 248 MPV 9.9 Immature Gran % (Auto) 0.4 Neut % (Auto) 55.8 Lymph % (Auto) 34.0 [place] % (Auto) 6.2 Eos % (Auto) 3.1 Baso % (Auto) 0.5 Neut # (Auto) 4.70 Lymph # (Auto) 2.86 [place] # (Auto) 0.52 Eos # (Auto) 0.26 Baso # (Auto) 0.04 Immature Gran # (Auto) 0.03 PT 10.2 INR 1.0 APTT 27 PTT Ratio 1.0 Heparin Anti-Xa, Unfract Sodium 136 Potassium 3.8 Chloride 100 Carbon Dioxide 28 Anion Gap 8 BUN 18 Creatinine 0.94 Est Cr Clr Drug Dosing 36.8 eGFR 58.00 BUN/Creatinine Ratio 19.1 Glucose 166 H POC Glucose Estimat Average Glucose Hemoglobin A1c Calcium 9.9 Total Bilirubin 0.6 AST 15 ALT 13 Alkaline Phosphatase 80 Troponin I High Sens 295.9 H* 320.9 H* 285.1 H* Total Protein 8.7 H Albumin 4.0 Globulin 4.7 H Albumin/Globulin Ratio 0.9 Lipase 12 02/16/25 02/16/25 02/16/25 16:42 20:18 23:44 WBC RBC Hgb Hct MCV MCH MCHC RDW Std Deviation RDW Coeff of Lori Plt Count MPV Immature Gran % (Auto) Neut % (Auto) Lymph % (Auto) [place] % (Auto) Eos % (Auto) Baso % (Auto) Neut # (Auto) Lymph # (Auto) [place] # (Auto) Eos # (Auto) Baso # (Auto) Immature Gran # (Auto) PT INR APTT PTT Ratio Heparin Anti-Xa, Unfract 0.15 L Sodium Potassium Chloride Carbon Dioxide Anion Gap BUN Creatinine Est Cr Clr Drug Dosing eGFR BUN/Creatinine Ratio Glucose POC Glucose 116 H 196 H Estimat Average Glucose Hemoglobin A1c Calcium Total Bilirubin AST ALT Alkaline Phosphatase Troponin I High Sens 311.9 H* Total Protein Albumin Globulin Albumin/Globulin Ratio Lipase 02/17/25 02/17/25 06:45 07:07 WBC 5.72 RBC 3.74 L Hgb 11.3 L Hct 33.3 L MCV 89.0 MCH 30.2 MCHC 33.9 RDW Std Deviation 44.0 RDW Coeff of Lori 13.6 Plt Count 195 MPV 9.6 Immature Gran % (Auto) Neut % (Auto) Lymph % (Auto) [place] % (Auto) Eos % (Auto) Baso % (Auto) Neut # (Auto) Lymph # (Auto) [place] # (Auto) Eos # (Auto) Baso # (Auto) Immature Gran # (Auto) PT INR APTT PTT Ratio Heparin Anti-Xa, Unfract 0.22 L Sodium 139 Potassium 3.8 Chloride 103 Carbon Dioxide 27 Anion Gap 9 BUN 21 Creatinine 0.97 Est Cr Clr Drug Dosing 35.8 eGFR 55.86 BUN/Creatinine Ratio 21.6 H Glucose 169 H POC Glucose 153 H Estimat Average Glucose 180 Hemoglobin A1c 7.9 H Calcium 8.8 Total Bilirubin AST ALT Alkaline Phosphatase Troponin I High Sens Total Protein Albumin Globulin Albumin/Globulin Ratio Lipase Diagnostic Findings Cardiac catheterization performed today revealed 99% ostial stenosis of a small diagonal branch. Some luminal irregularities in the proximal to mid LAD without discrete stenoses. No obstructive lesions. PG Care Time/CCT Total # of Minutes Spent Total Time Spent with Patient: Total time spent is greater than 50% in coordination of care (as documented) at patient's floor/unit and/or counseling patient: Coding Level of Care Code 47454 SUB INP/OBS CARE 235MIN Diagnoses Non-ST elevation PR (NSTEMI) I21.4 Left bundle branch block I44.7 Aortic stenosis I35.0
--- NOTE | 2025-02-17 15:19 | Hospitalist Progress Note ---
Date of Service February 17, 2025 Assessment & Plan (1) NSTEMI (non-ST elevated myocardial infarction): (2) Diabetes: (3) Hx of gout: Plan 89-year-old female history of nonocclusive coronary disease and recent TAVR in November 2024 who presents with chest pain with associated radiation symptoms and nausea patient has mild elevation of troponin in the face of a pre-existing left bundle branch block that occurred after TAVR placement. Chest pain S/p catheterization 02/17/2025: Small to medium second diagonal with 90% ostial stenosis, otherwise nonobstructive disease May be due to symptomatic hypertension versus small diagonal disease not amenable to stenting on cath Echo 02/15/2025: EF 65%. Small left ventricular cavity size with moderate LVH. No wall motion abnormalities noted Discontinue heparin post cath. Continue DAPT Optimize hypertensive management History of HFpEF No acute exacerbation Thiazide/Lasix held as she is clinically euvolemic Hypertension With blood pressures 180/200s on 02/17. May have some afterload contribution to her symptoms. Amlodipine increased to 10 mg. Will follow overnight for further blood pressure adjustments if/as needed Goal would be outpatient to under 130 systolic No symptoms of hypertension at bedside revisit Type II DM Continue insulin sliding scale. Reasonable BSG can Abnormal globin and protein, no abnormalities of the patient's differential Follow-up SPEP/UPEP as outpatient DVT prophylaxis: Lovenox Disposition: PCU pending further blood pressure control CODE STATUS: Full Admission and Anticipated Discharge Date Admission Date: February 16, 2025 Subjective Miriam seen at the bedside. Chest pain is improved. she has had fluctuating blood pressure and notes that she has a difficulty controlling her blood pressure at home, but her daughter notes she has also had issues with low diastolic blood pressure in the past. She is very worried about her blood pressure control as she [place] very far from the hospital and was with blood pressures 180/200s earlier. Overall however she feels okay today and is doing well post cath . She denies shortness of breath and difficulty breathing Physical Exam Physical Exam: General: A&Ox3. NAD. Cooperative. HEENT: Atraumatic, normocephalic. Vision and hearing grossly intact Pulm: CTAB A&P. -wheezes, -rales, -rhonchi. Symmetrical chest rise. No increase in work of breathing. No respiratory distress. Cardiac: RRR, -mrg. Radial pulses intact and symmetrical. Abdominal: Nontender, nondistended, soft. BS present. Extremities: Right wrist with TR band recently removed. Sensation in fingertips is intact bilaterally without deficit. Radial pulses intact bilaterally without deficit. Cap refill in the thumb intact bilaterally and less than 2 seconds Results & Data Results & Data Vital Signs (Past 12 Hours) Vital Signs Temp Pulse Pulse Resp BP BP BP 02/17/25 11:01 36.6 C 68 18 156/54 H 02/17/25 10:57 59 L 02/17/25 10:30 70 189/81 H 02/17/25 10:15 70 220/102 H 02/17/25 10:00 70 213/96 H 02/17/25 09:15 65 14 179/76 H 02/17/25 09:00 65 14 179/76 H 02/17/25 08:45 68 14 169/68 H 02/17/25 07:32 74 14 137/72 Pulse Ox O2 Del Method 02/17/25 11:01 95 Room Air 02/17/25 10:57 02/17/25 10:30 02/17/25 10:15 02/17/25 10:00 02/17/25 09:15 94 Room Air 02/17/25 09:00 94 Room Air 02/17/25 08:45 94 Room Air 02/17/25 07:32 Room Air PG Care Time/CCT Total # of Minutes Spent Total Time Spent with Patient: Total time spent is greater than 50% in coordination of care (as documented) at patient's floor/unit and/or counseling patient: Coding Level of Care Code 75065 SUB INP/OBS CARE 3/50MIN Diagnoses NSTEMI (non-ST elevated myocardial infarction) I21.4 Diabetes E11.9 Hx of gout Z87.39
[2025-02-17] MEDS: LABETALOL HCL IV 5 MG/ML 20ML IV STA (21:10)
[2025-02-18 06:48] LABS: Hematocrit (blood only) 33.1 % (37.0-47.0); Hemoglobin 11.5 g/dL (12.0-16.0); Mean Corpuscular Hemoglobin 30.7 pg (25.0-34.0); Mean Corpuscular Volume 88.5 fL (80.0-100.0); Platelet Count 200 K/uL (130-400); RDW Standard Deviation 43.8 fL (36.4-46.3); Red Blood Count 3.74 M/uL (4.20-5.40); White Blood Count 5.96 K/ul (4.8-10.8)
[2025-02-18 07:33] LABS: Anion Gap 10.0 (3-11); Blood Urea Nitrogen 21.0 mg/dl (6-23); Calcium 8.9 mg/dl (8.6-10.3); Carbon Dioxide 25.0 mmol/L (21-32); Chloride 101.0 mmol/L (98-107); Creatinine Clr Calc Pharmacy 37.1 ml/min; Glucose 180.0 mg/dl (70-99(Fasting)); Potassium 3.7 mmol/L (3.5-5.1); Sodium 136.0 mmol/L (136-145)
--- NOTE | 2025-02-18 07:33 | Discharge Summary ---
Discharge Summary Date of Service February 18, 2025 Principal Dx & Hospital Course #1 = Principal Diagnosis (1) NSTEMI (non-ST elevated myocardial infarction): (2) Diabetes: (3) Hx of gout: Plan 89-year-old female history of nonocclusive coronary disease and recent TAVR in November 2024 who presents with chest pain with associated radiation symptoms and nausea patient has mild elevation of troponin in the face of a pre-existing left bundle branch block that occurred after TAVR placement. She underwent a cardiac catheterization which showed possible diagonal branch disease otherwise nonocclusive coronary disease. Her symptoms were thought to be due to hypertension, and possibly with some symptoms from her diagonal. She had blood pressure modification during admission and was discharged to outpatient follow- up. To do as outpatient: 1. Continue metoprolol 25 mg succinate daily. May increase to 50 mg if needed 2. Continue amlodipine 10 mg daily. May dose decreased to 5 mg if having low diastolic pressures or low blood pressure/orthostasis 3. Dose reduce thiazide to 12.5 mg daily 4. Continue DAPT with aspirin/Plavix 5. Follow-up to PCP. Should have repeat CMP with protein level within approximately 1 month. If protein level remains elevated, follow-up UPEP/SPEP. Cellular differential was normal during admission 6. Continue blood pressure checks and optimization as outpatient 7. Patient reports history of HFpEF, although describes almost exclusively lower extremity symptoms with no pulmonary edema/orthopnea. Continue to follow for venous stasis, venous stasis fluid mobilization strategies were reviewed prior to discharge Chest pain S/p catheterization 02/17/2025: Small to medium second diagonal with 90% ostial stenosis, otherwise nonobstructive disease May be due to symptomatic hypertension versus small diagonal disease not amenable to stenting on cath Echo 02/15/2025: EF 65%. Small left ventricular cavity size with moderate LVH. No wall motion abnormalities noted Discontinue heparin post cath. Continue DAPT Optimize hypertensive management History of HFpEF No acute exacerbation Clinically euvolemic during admission Lengthy discussion regarding use of diuretics. She reports that she has never had pulmonary edema or shortness of breath, fluid has exclusively been in her legs suspicious for venous stasis. Thiazide was dose reduced on discharge. May continue to use Lasix as needed but had a long discussion on this will not treat venous stasis and she will need to use leg elevation, compression stockings and mobilization strategies to move the fluid for Lasix to help otherwise she will risk lightheadedness, dizziness, and kidney injury. She is agreeable to this and return precautions for reevaluation with her physician if more than 5 counts of weight gain over a short period of time occur were discussed Hypertension With blood pressures 180/200s on 02/17. May have some afterload contribution to her symptoms. Amlodipine increased to 10 mg. Still had elevated blood pressures following increased amlodipine however had good response to labetalol in the evening Metoprolol 25 mg succinate added daily. Can increase to 50 if rate greater th an 60 and BP is above goal Hydrochlorothiazide dose decreased to 12.5 mg Type II DM Resume home medications Abnormal globin and protein, no abnormalities of the patient's differential Follow-up SPEP/UPEP as outpatient Admission HPI Per Admitting Provider 89-year-old female with a history of TAVR in November 2024. Patient had a cardiac catheterization in August 2024 and developed nonocclusive coronary disease and preserved ejection fraction. Patient has been doing well since her TAVR in November however on 2 days prior to admission she developed substernal chest pain rating to her back left shoulder and jaw. This pain was fairly persistent. The patient took additional doses of aspirin x 2 at home pain improved strangely and then worsened and she [facility] she was told she had a NSTEMI with elevation of her troponin and echocardiogram did not show regional wall motion abnormalities and a preserved ejection fraction. The patient however left AMA presents to our facility for further evaluation due to her lead cargoman being local with Dr. Prabhakar. Currently the patient is pain-free. She does have some minor lower extremity swelling and tenderness which has been persistent throughout the week does not appear to be cellulitic. Her lungs are clear. Discharge Exam General: A&Ox3. NAD. Cooperative. HEENT: Atraumatic, normocephalic. Vision and hearing grossly intact Pulm: Symmetrical chest rise. No increase in work of breathing. No respiratory distress. Saturating normally on room air. Cardiac: RRR Extremities: Bilateral lower extremities slightly sensitive to touch on the skin. There is no erythema. She has scattered hyperpigmented macules new from prior. No petechiae are noted. No pruritus. PT pulses intact palpation bilaterally. Ankle dorsiflexion/plantarflexion, hip flexion 5/5 with robust strength bilaterally and no elicitation of pain. Heel pressure/weight low does not cause pain on either leg. Sensation of soft touch is intact in the lower extremities bilaterally without pain or deficit. No pain at/proximal to the knee bilaterally. There is a annular erythematous patch about 1 cm in diameter with peripheral scale on the left lateral knee suspicious for tinea. Remaining rash is without scale. Discharge Plan Discharge Items Patient Disposition: Home - Self-Care Reason For Visit: CHEST PAIN, ELEV TROPONIN Discharge Diagnosis: Hypertension Nonocclusive coronary artery disease Condition on Discharge: Good Activity: Resume your previous activity Non-emergency contact: Primary Care Provider Call non-emergency contact if: you have any medication questions, your symptoms worsen and your pain is not controlled Follow-up/Referrals: Alfredo Prabhakar MD [Physician] - Jarod Floyd MD [Primary Care Provider] - Diet: Heart Healthy Addtl Attending Provider Instructions: You are seen in the hospital for chest pain. You underwent a cardiac catheterization to evaluate cardiac ischemia as a potential cause of your chest pain. This did not show any major obstructive disease however 1 small diagonal branch too small for catheterization may have been distally occluded and could contribute to chest pain. You were noted to have severe intermittent hypertension which may have also contributed to your chest pain. An ultrasound of your heart 02/15/2025 showed a normal pumping function (ejection fraction 65%, normal ranging is 60-65%) with some possible ventricular hypertension which can be caused by poorly controlled blood pressure You have had changes to your blood pressure medications. When you return home please take amlodipine 10 mg by mouth once daily. Please take metoprolol succinate 25 mg by mouth once daily in the morning. You may take an additional 25 mg if your heart rate is above 60 and your blood press ure is consistently above 160 on 3 consecutive checks 30 minutes apart while resting. Please follow-up with your PCP for blood pressure medication adjustments as needed. If you have symptoms of hypotension, or your blood pressure is low please contact your PCP for recommendations. You may need to decrease your amlodipine back to 5 mg. You have been prescribed dual antiplatelet therapy to help protect your heart from future blockages. Please continue take Plavix 75 mg by mouth once daily. Please continue to take aspirin 81 mg by mouth once daily. If you have any bleeding, lightheadedness, bloody or black bowel movements, or other concerning symptoms please seek prompt medical reevaluation You have been on Lasix 20 mg every other day for some fluid retention. You did not show signs of congestive heart failure and had no pulmonary edema. Your fluid retention is likely venous stasis. Using medicines like Lasix without other interventions to mobilize fluid from your legs can lead to a kidney injury, Lasix alone will not treat venous stasis. He may use Lasix as needed if you have significant leg swelling however compression socks, elevation of your legs 3 times daily should be done prior to using this. If you have more than 5 pounds of weight gain within a week please contact your physician for recommendations. Your hydrochlorothiazide was was reduced to 12.5 mg daily. You had some discomfort in the skin of your legs bilaterally. Your legs were with intact pulses and no signs of erythema/warmth suggestive of infection. You had a bilateral distribution suspicious for some contact dermatitis/irritation in a sock distribution. You did not have any hives. You did had evidence of a fungal rash, tinea, on the left knee. You have been prescribed hydrocortisone. You may also use [id number] hydrocortisone on your legs bilaterally for contact dermatitis, and should use [id number] Lotrimin for the small round patch by your left knee for around 10 days, or 3 days past resolution if this heals prior to that. You had a slightly elevated globulin and protein level during admission. Your cellular differential (blood counts) were normal during admission. Total protein can be elevated in some inflammatory states. Please have blood work repeated in 1 to 2 weeks by your primary care provider. If your protein levels remain elevated, you can have follow-up testing with a SPEP/UPEP If you develop any new or worsening symptoms including fever, chills, sweats, chest pain, chest pressure, difficulty breathing, uncontrolled nausea/vomiting, rash, wheezing, passing out or nearly passing out, bleeding, black/bloody bowel movements, or other new or concerning symptoms please call your primary care physician, or call 911 for re-evaluation in the emergency department if you are very concerned. Pending Studies at Discharge: No Stand-Alone Forms: My [employer], Smoking Cessation Medications and DC Order Prescriptions: New clopidogrel 75 mg Tablet 75 mg PO QAM Qty: 30 0RF metoprolol succinate 25 mg Tablet Extended Release 24 Hr 25 mg PO QAM Qty: 30 0RF hydrocortisone 2.5 % ointment 1 applic topical DAILY 3 Days Qty: 20 0RF Continued allopurinol 300 mg tablet 300 mg PO QAM amlodipine 5 mg tablet 5 mg PO QAM metformin 500 mg tablet 500 mg PO BID aspirin [Adult Low Dose Aspirin] 81 mg tablet,delayed release (DR/EC) 81 mg PO QAM Saccharomyces boulardii [Daily Probiotic (S. boulardii)] 250 mg capsule 250 mg PO DAILY fluorometholone 0.1 % Drops,Suspension 1 drp OPL UD ondansetron 4 mg tablet,disintegrating 4 mg PO DAILY PRN (Reason: n/v) glipizide 2.5 mg tablet extended release 24hr 2.5 mg PO DAILY cholecalciferol (vitamin D3) 125 mcg (5,000 unit) Capsule 125 mcg PO DAILY irbesartan 300 mg tablet 300 mg PO DAILY Patient Comments: 02/16 Per patients daughter she still takes but the last was was in June for 90 days psyllium 0 mg PO DAILY Patient Comments: 02/16 patients daughter unsure about dose Changed furosemide 20 mg tablet 20 mg PO Q2D PRN (Reason: fluid gain) Qty: 0 0RF hydrochlorothiazide 25 mg tablet 12.5 mg PO DAILY Qty: 0 0RF Discharge Orders: Discharge Order (Routine); Ordered 02/18/25 Ordered By: Mauro Daley/Other Patient Handouts: Coronary Angiography, Managing Type 2 Diabetes Admission Data Admit Date/Time: 02/16/25 14:45 Attending Provider: Mauro Heart Admit Provider: Lorenzo Triplett Primary Care Provider: Jarod Floyd Other Providers: Lorenzo Triplett; Alfredo Prabhakar Other Interventions: Discharge Summary Assessment (RN) Last Done: 02/18/25 10:59 Hospital Stay Data Consultations 02/16/25 14:34 ED Decision to Admit Stat 02/16/25 15:53 Consult Cardiology Routine Procedures Performed Operation Date: 02/17/25 10:00 Actual Procedures p Cineradiography w/Routine Exam - Alfredo Prabhakar MD p Cath, Left with Cors and Vent - Alfredo Prabhakar MD Diagnostic Imagining Performed 02/17/25 07:51 CL Cath Imgs for PACS use only Routine Discharge Instructions Given to Patient (Per Discharging Provider) You are seen in the hospital for chest pain. You underwent a cardiac catheterization to evaluate cardiac ischemia as a potential cause of your chest pain. This did not show any major obstructive disease however 1 small diagonal branch too small for catheterization may have been distally occluded and could contribute to chest pain. You were noted to have severe intermittent hypertension which may have also contributed to your chest pain. An ultrasound of your heart 02/15/2025 showed a normal pumping function (ejection fraction 65%, normal ranging is 60-65%) with some possible ventricular hypertension which can be caused by poorly controlled blood pressure You have had changes to your blood pressure medications. When you return home please take amlodipine 10 mg by mouth once daily. Please take metoprolol succinate 25 mg by mouth once daily in the morning. You may take an additional 25 mg if your heart rate is above 60 and your blood pressure is consistently above 160 on 3 consecutive checks 30 minutes apart while resting. Please follow-up with your PCP for blood pressure medication adjustments as needed. If you have symptoms of hypotension, or your blood pressure is low please contact your PCP for recommendations. You may need to decrease your amlodipine back to 5 mg. You have been prescribed dual antiplatelet therapy to help protect your heart from future blockages. Please continue take Plavix 75 mg by mouth once daily. Please continue to take aspirin 81 mg by mouth once daily. If you have any bleeding, lightheadedness, bloody or black bowel movements, or other concerning symptoms please seek prompt medical reevaluation You have been on Lasix 20 mg every other day for some fluid retention. You did not show signs of congestive heart failure and had no pulmonary edema. Your fluid retention is likely venous stasis. Using medicines like Lasix without other interventions to mobilize fluid from your legs can lead to a kidney injury, Lasix alone will not treat venous stasis. He may use Lasix as needed if you have significant leg swelling however compression socks, elevation of your legs 3 times daily should be done prior to using this. If you have more than 5 pounds of weight gain within a week please contact your physician for recommendations. Your hydrochlorothiazide was was reduced to 12.5 mg daily. You had some discomfort in the skin of your legs bilaterally. Your legs were with intact pulses and no signs of erythema/warmth suggestive of infection. You had a bilateral distribution suspicious for some contact dermatitis/irritation in a sock distribution. You did not have any hives. You did had evidence of a fungal rash, tinea, on the left knee. You have been prescribed hydrocortisone. You may also use [id number] hydrocortisone on your legs bilaterally for contact dermatitis, and should use [id number]-[id number] Lotrimin for the small round patch by your left knee for around 10 days, or 3 days past resolution if this heals prior to that. You had a slightly elevated globulin and protein level during admission. Your cellular differential (blood counts) were normal during admission. Total protein can be elevated in some inflammatory states. Please have blood work repeated in 1 to 2 weeks by your primary care provider. If your protein levels remain elevated, you can have follow-up testing with a SPEP/UPEP If you develop any new or worsening symptoms including fever, chills, sweats, chest pain, chest pressure, difficulty breathing, uncontrolled nausea/vomiting, rash, wheezing, passing out or nearly passing out, bleeding, black/bloody bowel movements, or other new or concerning symptoms please call your primary care physician, or call 911 for re-evaluation in the emergency department if you are very concerned. Total Time Total Time Spent Total Time Spent (In Minutes): Time spend day of discharge 40 minutes including direct patient care, documentation, review of labs and images, and coordination of care. Coding Level of Care Code 10837 INP/OBS DISCH >30 MIN Diagnoses NSTEMI (non-ST elevated myocardial infarction) I21.4 Diabetes E11.9 Hx of gout Z87.39
[2025-02-18] MEDS: METOPROLOL SUCC 25MG EXT REL TAB PO SCH (08:28)
[2025-02-18] MEDS: CLOPIDOGREL BISULFATE 75 MG TAB PO SCH (08:31)
[2025-02-18] MEDS ORDERED: ENOXAPARIN INJ 40 MG/0.4 ML SYR SQ SCH (09:00)
[2025-02-18] MEDS: HYDROCORTISONE 2.5% OINT 20 GM TUBE EXT PRN (10:28)
[2025-02-18] MEDS: CLOTRIMAZOLE 1% CR 15 GM TUBE EXT ONE (10:28)
[2025-02-18] MEDS: METOPROLOL TARTRATE 25 MG TAB PO ONE (11:36)
[2025-02-18] MEDS: hydroCHLOROthiazide 25 MG TAB PO STA (11:36)
[2025-02-18 11:57] VITALS: BP 207/98; PULSE 63; RESP 18; TEMP 97.5; O2SAT 56
[2025-02-18] MEDS: NITROGLYCERIN 2% OINTMENT 30GM TUBE EXT ONE (13:52)
== END 2025-02-18 13:30 | disposition home or self-care (01) | DRG 281 ==
LOC: ED 12:16 → 2E 14:45 → SUATTDRO 14:45 → 2E 16:00